=== PATIENT | female | born 1975 | race American Indian/Alaskan Native ===

== ENCOUNTER 2016-06-30 11:00 | Emergency (ER) | payer SELFPAY | END 2016-06-30 17:06 | disposition left against medical advice (07) | LOC: ED 11:00 | DX: R10.9 Unspecified abdominal pain (principal); Z53.21 Procedure and treatment not carried out due to patient leaving prior to being seen by health care provider ==

== ENCOUNTER 2016-11-05 11:55 | Emergency (ER) | payer SELFPAY ==
[2016-11-05 12:22] VITALS: BP 112/79
[2016-11-05 13:13] LABS: Hematocrit 32.5 % (30.3-42.9); Hemoglobin 11.2 gm/dl (10.1-14.3); Mean Corpuscular HGB Conc 35 % (30-34); Mean Corpuscular Hemoglobin 31 pg (28-32); Mean Corpuscular Volume 90 fl (79-97); Platelet Count 234 K/mm3 (140-440); Red Blood Count 3.61 M/mm3 (3.65-5.03); Red Cell Distribution Width 13.3 % (13.2-15.2); White Blood Count 4.7 K/mm3 (4.5-11.0)
== END 2016-11-05 18:30 | disposition left against medical advice (07) ==
LOC: ED 11:55
DX: R42 Dizziness and giddiness (principal); Z53.21 Procedure and treatment not carried out due to patient leaving prior to being seen by health care provider
CPT/HCPCS: 36415; 85027

== ENCOUNTER 2018-06-10 14:00 | Emergency (ER) | payer SELFPAY ==
--- NOTE | 2018-06-10 14:19 | Emergency Department Report ---
Blank Doc - Documentation Documentation: This is a 42-year-old female that presents with URI symptoms. This initial assessment/diagnostic orders/clinical plan/treatment(s) is/are subject to change based on patient's health status, clinical progression and re- assessment by fellow clinical providers in the ED. Further treatment and workup at subsequent clinical providers discretion. Patient/guardians urged not to elope from the ED as their condition may be serious if not clinically assessed and managed. Initial orders include: 1- Patient sent to [facility] for further evaluation and treatment 2- CXR
--- NOTE | 2018-06-10 14:58 | XRay Report ---
ROUTINE CHEST, TWO VIEWS: HISTORY: Cough. The trachea, heart, mediastinal contour, lung qureshi and bony thorax are unremarkable. IMPRESSION: Unremarkable chest x-ray.
== END 2018-06-10 17:42 | disposition left against medical advice (07) ==
LOC: ED 14:00
DX: R05 Cough (principal); R09.81 Nasal congestion; Z53.21 Procedure and treatment not carried out due to patient leaving prior to being seen by health care provider
CPT/HCPCS: 71046

== ENCOUNTER 2019-03-26 09:09 | Emergency (ER) | payer SELFPAY ==
[2019-03-26 12:28] LABS: BUN/Creatinine Ratio 11; Blood Urea Nitrogen 8 mg/dL (7-17); Calcium 9.4 mg/dL (8.4-10.2); Hemolysis Index 2
[2019-03-26 12:37] LABS: Hematocrit 28.7 % (30.3-42.9); Hemoglobin 9.1 gm/dl (10.1-14.3); Mean Corpuscular HGB Conc 32 % (30-34); Platelet Count 281 K/mm3 (140-440); Red Blood Count 4.19 M/mm3 (3.65-5.03)
[2019-03-26 12:43] LABS: Mean Corpuscular Volume 69 fl (79-97); Red Cell Distribution Width 20.3 % (13.2-15.2)
[2019-03-26 13:09] LABS: Bilirubin,Urine NEG (Negative); Blood,Urine MOD (Negative); Color,Urine Yellow (Yellow); Mucus,Urine FEW /HPF; Protein,Urine <15 mg/dL mg/dL (Negative); Urobilinogen,Urine < 2.0 mg/dL (<2.0)
[2019-03-26 13:16] LABS: HCG Qualitative,Urine Negative (Negative)
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
--- NOTE | 2019-03-26 13:50 | Cat Scan Report ---
CT BRAIN: WITHOUT CONTRAST INDICATION / CLINICAL INFORMATION: headache and dizziness x 3 weeks. COMPARISON: None available. FINDINGS: BRAIN/INTRACRANIAL STRUCTURES: Unenhanced CT images of the brain demonstrate no evidence of acute int racranial abnormality. Ventricles and sulci are normal in size and shape. There is no evidence of hemorrhage or mass. There are no abnormal extra-axial fluid collections. EXTRACRANIAL STRUCTURES: Unremarkable. IMPRESSION: Negative unenhanced CT of the brain. All CT scans at this location are performed using dose reduction to ALARA by means of automated expos ure control. Signer Name: John Matthew MD Signed: 03/26/2019 1:46 PM Workstation Name: [id number] [id number]
[2019-03-26 14:04] VITALS: BP 124/86
== END 2019-03-26 14:16 | disposition home or self-care (01) ==
LOC: ED 09:09
DX: G89.29 Other chronic pain (principal); M54.9 Dorsalgia, unspecified; D64.9 Anemia, unspecified; F17.200 Nicotine dependence, unspecified, uncomplicated; D57.3 Sickle-cell trait; Z88.8 Allergy status to other drugs, medicaments and biological substances
CPT/HCPCS: 36415; 70450; 80048; 81001; 81025; 85027

== ENCOUNTER 2020-07-28 08:11 | Emergency (ER) | payer SELFPAY ==
--- NOTE | 2020-07-28 10:40 | Emergency Department Report ---
ED Back Pain/Injury HPI - General Chief Complaint: Back Pain/Injury Stated Complaint: BACK PAINS Time Seen by Provider: 07/28/20 10:29 Source: patient Limitations: No Limitations - History of Present Illness Initial Comments: Patient is a 44-year-old female presents emergency room with complaints of bilateral back pain that began 2 to 3 weeks ago. She states that the pain is in her lower back and all the way up to her upper back on both sides. She states that she works at [employer] and frequently does lifting and repetitive movements. She denies any fall or injury. She states occasionally she feels tingling in her right arm. She states that she is also noticed a nodule to her right thumb and has some discomfort with movement. She denies any fever, nausea, vomiting, diar ulises, complete numbness, weakness, urinary symptoms, bowel or bladder incontinence. She states that she has had to call out of work for the last two Fridays and needs a excuse for work. She states that by the end of the week her back pain increases. She has a past medical history of sickle cell trait and borderline diabetes. she has an adverse reaction to tramadol but no true allergy. Last menstrual cycle the end of last month, she denies . - Related Data Previous Rx's Medication Instructions Recorded Last Taken Type Amoxicillin [Amoxicillin TAB] 875 mg PO BID #20 tablet 03/04/15 Unknown Rx Fluticasone [Flonase] 2 spray NS QDAY #1 bottle 03/04/15 Unknown Rx Loratadine (Nf) [Claritin] 10 mg PO DAILY #30 tablet 03/04/15 Unknown Rx Albuterol Sulfate [Ventolin HFA] 2 puff IH Q4H PRN #1 hfa.aer.ad 04/18/15 Unknown Rx Amoxicillin/K Clav Tab [Augmentin 1 tab PO Q12HR #20 tab 04/18/15 Unknown Rx 875 mg] Brompheniramine/Pseudoephed/Dm 10 ml PO TID PRN #150 ml 04/18/15 Unknown Rx [Bromfed Dm Cough Syrup] Fluconazole (Nf) [Diflucan] 200 mg PO QDAY #1 tab 04/18/15 Unknown Rx Prednisone [predniSONE 10 mg 10 mg PO .TAPER #1 tab.ds.pk 04/18/15 Unknown Rx (6-Day Pack, 21 Tabs)] Ibuprofen [Motrin] 800 mg PO Q8HR PRN 7 Days #21 03/26/19 Unknown Rx tablet Menthol/Camphor [[place]bot 1 applicatio TP BID #18 oint...g. 07/28/20 Unknown Rx Ointment] Naproxen [EC-Naproxen] 500 mg PO BID PRN #20 tablet.dr 07/28/20 Unknown Rx methOCARBAMOL [Robaxin TAB] 500 mg PO BID PRN #20 tab 07/28/20 Unknown Rx Allergies Allergy/AdvReac Type Severity Reaction Status Date / Time tramadol HCl [From Ultram] Allergy Itching Verified 11/05/16 12:22 ED Review of Systems ROS: Stated complaint: BACK PAINS Other details as noted in HPI Comment: All other systems reviewed and negative ED Past Medical Hx - Past Medical History Additional medical history: "sickle cell trait" - Surgical History Past Surgical History?: No - Social History Smoking Status: Current Every Day Smoker - Medications Home Medications: Home Medications Medication Instructions Recorded Confirmed Last Taken Type Amoxicillin [Amoxicillin TAB] 875 mg PO BID #20 tablet 03/04/15 Unknown Rx Fluticasone [Flonase] 2 spray NS QDAY #1 bottle 03/04/15 Unknown Rx Loratadine (Nf) [Claritin] 10 mg PO DAILY #30 tablet 03/04/15 Unknown Rx Albuterol Sulfate [Ventolin HFA] 2 puff IH Q4H PRN #1 hfa.aer.ad 04/18/15 Unknown Rx Amoxicillin/K Clav Tab [Augmentin 1 tab PO Q12HR #20 tab 04/18/15 Unknown Rx 875 mg] Brompheniramine/Pseudoephed/Dm 10 ml PO TID PRN #150 ml 04/18/15 Unknown Rx [Bromfed Dm Cough Syrup] Fluconazole (Nf) [Diflucan] 200 mg PO QDAY #1 tab 04/18/15 Unknown Rx Prednisone [predniSONE 10 mg 10 mg PO .TAPER #1 tab.ds.pk 04/18/15 Unknown Rx (6-Day Pack, 21 Tabs)] Ibuprofen [Motrin] 800 mg PO Q8HR PRN 7 Days #21 03/26/19 Unknown Rx tablet Menthol/Camphor [[place]bot 1 applicatio TP BID #18 oint...g. 07/28/20 Unknown Rx Ointment] Naproxen [EC-Naproxen] 500 mg PO BID PRN #20 tablet. 07/28/20 Unknown Rx methOCARBAMOL [Robaxin TAB] 500 mg PO BID PRN #20 tab 07/28/20 Unknown Rx ED Physical Exam - General Limitations: No Limitations General appearance: alert, in no apparent distress - Head Head exam: Present: atraumatic, normocephalic - Eye Eye exam: Present: normal appearance - ENT ENT exam: Present: mucous membranes moist - Neck Neck exam: Present: normal inspection, full ROM. Absent: tenderness, meningismus - Respiratory Respiratory exam: Present: normal lung sounds bilaterally. Absent: respiratory distress, wheezes, rales, rhonchi, stridor, chest wall tenderness, accessory muscle use, decreased breath sounds, prolonged expiratory - Cardiovascular Cardiovascular Exam: Present: regular rate, normal rhythm, normal heart sounds. Absent: systolic murmur, diastolic murmur, rubs, gallop - Extremities Exam Extremities exam: Present: other (small nodule papable at the base of the thumb, no erythema, no increased warmth, no bony ttp, no edema, FROM of the RUE with discomfort with flexion of the thumb, neurovascularly intact) - Back Exam Back exam: Present: normal inspection, full ROM, paraspinal tenderness (bilateral T-spine and L-spine paraspinal muscular ttp, no midline C-spine, T- spine or L-spine ttp, no step offs, no deformities). Absent: vertebral tenderness - Neurological Exam Neurological exam: Present: alert, oriented X3, CN II-XII intact, normal gait. Absent: motor sensory deficit - Psychiatric Psychiatric exam: Present: normal affect, normal mood - Skin Skin exam: Present: warm, dry, intact ED Course Vital Signs 07/28/20 08:26 Temperature 98.9 F Pulse Rate 63 Respiratory 18 Rate Blood Pressure 143/102 O2 Sat by Pulse 99 Oximetry ED Medical Decision Making - Medical Decision Making Patient is a 44-year-old female presents emergency room with complaints of bilateral back pain that began 2 to 3 weeks ago. She states that the pain is in her lower back and all the way up to her upper back on both sides. She states that she works at [employer] and frequently does lifting and repetitive movements. She denies any fall or injury. She states occasionally she feels tingling in her ri ght arm. She states that she is also noticed a nodule to her right thumb and has some discomfort with movement. She denies any fever, nausea, vomiting, diarrhea, complete numbness, weakness, urinary symptoms, bowel or bladder incontinence. She states that she has had to call out of work for the last two Fridays and needs a excuse for work. She states that by the end of the week her back pain increases. She has a past medical history of sickle cell trait and borderline diabetes. she has an adverse reaction to tramadol but no true allergy. Last menstrual cycle the end of last month, she denies . vitals are normal. On exam:small nodule papable at the base of the thumb, no erythema, no increased warmth, no bony ttp, no edema, FROM of the RUE with discomfort with flexion of the thumb, neurovascularly intact, bilateral T-spine and L-spine paraspinal muscular ttp, no midline C-spine, T-spine or L-spine ttp, no step offs, no deformities, no focal neuro deficits. Examination appears consistent with tenosynovitis, no signs of infection. Back exam appears consistent with muscle strain. Patient has no red flag warning signs of back pain, no trauma, no unexplained weight loss, no fever, no IV drug use, no steroid use, no history of cancer. Discussed the importance of orthopedic follow-up. Advised patient Please use medication as prescribed. Do not drive or operate machinery while taking muscle relaxer Robaxin. May use ice pack, heating pad, rest, epsom salt bath. Follow-up with the primary care doctor. Follow-up with a orthopedic doctor. Return to emergency room for new or worsening symptoms. Critical care attestation.: If time is entered above; I have spent that time in minutes in the direct care of this critically ill patient, excluding procedure time. ED Disposition Clinical Impression: Tenosynovitis of thumb Back pain Qualifiers: Back pain location: low back pain Chronicity: acute Back pain laterality: bilateral Sciatica presence: without sciatica Qualified Code(s): M54.5 - Low back pain Disposition: TO HOME OR SELFCARE Is pt being admited?: No Does the pt Need Aspirin: No Condition: Stable Instructions: Tenosynovitis, Acute Back Pain, Adult Additional Instructions: Please use medication as prescribed. Do not drive or operate machinery while taking muscle relaxer Robaxin. May use ice pack, heating pad, rest, epsom salt bath. Follow-up with the primary care doctor. Follow-up with a orthopedic doctor. Return to emergency room for new or worsening symptoms. Prescriptions: Naproxen [EC-Naproxen] 500 mg PO BID PRN #20 tablet. PRN Reason: pain methOCARBAMOL [Robaxin TAB] 500 mg PO BID PRN #20 tab PRN Reason: pain Menthol/Camphor [[place] Abbot Ointment] 1 applicatio TP BID #18 oint...g. Referrals: AMBER DELANEY MD [Staff Physician] - 2-3 Days [facility] [Provider Group] - 2-3 Days JANE MARIE MD [Staff Physician] - 2-3 Days [facility] [Provider Group] - 2-3 Days [facility], [LAB/CONTRACT] - 2-3 Days [facility] [Outside] - 2-3 Days Forms: Work/School Release Form(ED) Time of Disposition: 10:41 Print Language: DANISH
== END 2020-07-28 11:03 | disposition home or self-care (01) ==
LOC: ED 08:11
CPT/HCPCS: 99282

== ENCOUNTER 2020-12-28 08:13 | Emergency (ER) | payer BC ==
[2020-12-28 08:23] VITALS: BP 138/100
--- NOTE | 2020-12-28 10:30 | Emergency Department Report ---
ED General Adult HPI - General Chief complaint: Pain General Stated complaint: ARM,NECK, AND BACK PAIN PUI?: No Time Seen by Provider: 12/28/20 10:06 Source: patient Mode of arrival: Ambulatory Limitations: No Limitations - History of Present Illness Initial comments: 45-year-old female presents to the ER today complaining of pain to her neck, back, and bilateral wrist and requesting medication for pain. Patient states that her pain started since July 2020. She states that her pain is related to work injury from repetitive lifting while she was working at [employer]. She states that she was referred to an museum informatics specialist by her risk control product liability director and they did MRI of her neck her back and her wrist and told she had carpal tunnel and herniated disc in her neck and her back. Patient states that she has been having neck pain, back pain pain radiating down into her arms, and bilateral wrist pain as well as some numbness and tingling to the upper arms from her carpal tunnel since July 2020. She states that the orthopedic doctor that her risk control product liability director sent her to recommend that she get "shots" but she states that before getting the shot she wanted to get a second opinion. She has tried to follow-up with other museum informatics specialist on her own, but she states that she has not been able to get an appointment. Patient states that she was prescribed naproxen, but is not really helping the pain. She is also use [id number] rubs but is not helping the pain. She denies any new injury since July. She reports no additional symptoms at this time. MD Complaint: Neck pain/back pain/wrist pain -: Gradual, month(s) (since july 2020) - Related Data Previous Rx's Medication Instructions Recorded Last Taken Type Amoxicillin [Amoxicillin TAB] 875 mg PO BID #20 tablet 03/04/15 Unknown Rx Fluticasone [Flonase] 2 spray NS QDAY #1 bottle 03/04/15 Unknown Rx Loratadine (Nf) [Claritin] 10 mg PO DAILY #30 tablet 03/04/15 Unknown Rx Albuterol Sulfate [Ventolin HFA] 2 puff IH Q4H PRN #1 hfa.aer.ad 04/18/15 Unknown Rx Amoxicillin/K Clav Tab [Augmentin 1 tab PO Q12HR #20 tab 04/18/15 Unknown Rx 875 mg] Brompheniramine/Pseudoephed/Dm 10 ml PO TID PRN #150 ml 04/18/15 Unknown Rx [Bromfed Dm Cough Syrup] Fluconazole (Nf) [Diflucan] 200 mg PO QDAY #1 tab 04/18/15 Unknown Rx Acetaminophen/Codeine [Tylenol 1 tab PO Q6H PRN #12 tab 12/28/20 Unknown Rx /Codeine # 3 tab] methylPREDNISolone [Medrol 4MG 4 mg PO DAILY #1 tab.ds.pk 12/28/20 Unknown Rx DOSEPAK (21 tabs)] tiZANidine [Zanaflex 4mg TAB] 4 mg PO Q8HR PRN #20 tablet 12/28/20 Unknown Rx Allergies Allergy/AdvReac Type Severity Reaction Status Date / Time tramadol HCl [From [facility]] Allergy Itching Verified 11/05/16 12:22 ED Review of Systems ROS: Stated complaint: ARM,NECK, AND BACK PAIN Other details as noted in HPI Comment: All other systems reviewed and negative Constitutional: denies: chills, fever Eyes: denies: eye pain, eye discharge, vision change ENT: denies: ear pain, throat pain Respiratory: denies: cough, shortness of breath, SOB with exertion, SOB at rest, wheezing Cardiovascular: denies: chest pain, palpitations, dyspnea on exertion, edema, syncope, paroxysmal nocturnal dyspnea Gastrointestinal: denies: abdominal pain, nausea, vomiting, diarrhea, constipation, hematemesis, melena, hematochezia Genitourinary: as per HPI Musculoskeletal: back pain, arthralgia, other (neck pain ). denies: joint swelling, myalgia Skin: denies: rash, lesions, change in color, change in hair/nails, pruritus Neurological: denies: headache, weakness, numbness, paresthesias, confusion, abnormal gait, vertigo Psychiatric: denies: anxiety, depression, auditory hallucinations, visual hallucinations, homicidal thoughts, suicidal thoughts Hematological/Lymphatic: denies: easy bleeding, easy bruising, swollen glands ED Past Medical Hx - Past Medical History Previous Medical History?: Yes Additional medical history: "sickle cell trait" - Surgical History Past Surgical History?: Yes - Social History Smoking Status: Current Every Day Smoker - Medications Home Medications: Home Medications Medication Instructions Recorded Confirmed Last Taken Type Amoxicillin [Amoxicillin TAB] 875 mg PO BID #20 tablet 03/04/15 Unknown Rx Fluticasone [Flonase] 2 spray NS QDAY #1 bottle 03/04/15 Unknown Rx Loratadine (Nf) [Claritin] 10 mg PO DAILY #30 tablet 03/04/15 Unknown Rx Albuterol Sulfate [Ventolin HFA] 2 puff IH Q4H PRN #1 hfa.aer.ad 04/18/15 Unknown Rx Amoxicillin/K Clav Tab [Augmentin 1 tab PO Q12HR #20 tab 04/18/15 Unknown Rx 875 mg] Brompheniramine/Pseudoephed/Dm 10 ml PO TID PRN #150 ml 04/18/15 Unknown Rx [Bromfed Dm Cough Syrup] Fluconazole (Nf) [Diflucan] 200 mg PO QDAY #1 tab 04/18/15 Unknown Rx Acetaminophen/Codeine [Tylenol 1 tab PO Q6H PRN #12 tab 12/28/20 Unknown Rx /Codeine # 3 tab] methylPREDNISolone [Medrol 4MG 4 mg PO DAILY #1 tab.ds.pk 12/28/20 Unknown Rx DOSEPAK (21 tabs)] tiZANidine [Zanaflex 4mg TAB] 4 mg PO Q8HR PRN #20 tablet 12/28/20 Unknown Rx ED Physical Exam - General Limitations: No Limitations General appearance: alert, in no apparent distress - Head Head exam: Present: atraumatic, normocephalic - Eye Eye exam: Present: normal appearance, PERRL, EOMI Pupils: Present: normal accommodation - ENT ENT exam: Present: normal exam, mucous membranes moist, TM's normal bilaterally - Neck Neck exam: Present: normal inspection, tenderness (Diffuse midline tenderness as well as bilateral paraspinal muscle tenderness and trapezius muscle tenderness with some spasms noted to the paraspinal muscles and the trapezius muscles.), full ROM - Respiratory Respiratory exam: Present: normal lung sounds bilaterally. Absent: respiratory distress, wheezes, rales, rhonchi - Cardiovascular Cardiovascular Exam: Present: regular rate, normal rhythm, normal heart sounds - Extremities Exam Extremities exam: Present: normal inspection, normal capillary refill, other (Moderate tenderness to palpation to the right wrist. Pain with range of motion. No swelling, erythema or bruising noted to the right wrist. No tenderness to palpation to the left wrist. Full range of motion of the left wrist.). Absent: pedal edema - Back Exam Back exam: Present: normal inspection, muscle spasm (Lumbar spine), paraspinal tenderness (Lumbar spine). Absent: vertebral tenderness - Neurological Exam Neurological exam: Present: alert, oriented X3, CN II-XII intact, normal gait - Psychiatric Psychiatric exam: Present: normal affect, normal mood ED Course Vital Signs 12/28/20 08:22 Temperature 97.7 F Pulse Rate 92 H Respiratory 16 Rate Blood Pressure 138/100 O2 Sat by Pulse 98 Oximetry Critical care attestation.: If time is entered above; I have spent that time in minutes in the direct care of this critically ill patient, excluding procedure time. ED Disposition Clinical Impression: Chronic pain, History of carpal tunnel syndrome, History of degenerative disc disease, Radicular pain Disposition: 01 HOME / SELF CARE / HOMELESS Is pt being admited?: No Does the pt Need Aspirin: No Condition: Stable Instructions: Carpal Tunnel Syndrome, [id number], Radicular Pain, Chronic Pain, Adult, Degenerative Disk Disease Additional Instructions: Recommend that you take the Robaxin, the Tylenol threes, and the Medrol Dosepak as prescribed. You can follow-up with [facility], which is one of our local neuro hearing specialist and their information will be listed on your discharge instructions. Return to the ER if your symptoms changes or worsens in any way. Prescriptions: methylPREDNISolone [Medrol 4MG DOSEPAK (21 tabs)] 4 mg PO DAILY #1 tab.ds.pk Acetaminophen/Codeine [Tylenol /Codeine # 3 tab] 1 tab PO Q6H PRN #12 tab PRN Reason: pain tiZANidine [Zanaflex 4mg TAB] 4 mg PO Q8HR PRN #20 tablet PRN Reason: Muscle spasm Referrals: [facility] [Provider Group] - 3-5 Days [facility] [Provider Group] - 3-5 Days Time of Disposition: 10:47
== END 2020-12-28 11:30 | disposition home or self-care (01) ==
LOC: ED 08:13
DX: G89.29 Other chronic pain (principal); G56.00 Carpal tunnel syndrome, unspecified upper limb; M51.36 Other intervertebral disc degeneration, lumbar region; F17.200 Nicotine dependence, unspecified, uncomplicated; Z88.5 Allergy status to narcotic agent
CPT/HCPCS: 99281